=== PATIENT | male | born 1945 | race Caucasian/White ===

== ENCOUNTER 2021-10-08 07:14 | Outpatient (CLI) | payer OTHER | END 2021-10-08 07:15 | disposition home or self-care (01) | LOC: SONOGRAMA 07:14 | PROVIDERS: ATTEND Internal Medicine Hematology & Oncology | DX: E04.2 Nontoxic multinodular goiter (principal); D51.3 Other dietary vitamin B12 deficiency anemia; D50.8 Other iron deficiency anemias; R97.20 Elevated prostate specific antigen [PSA]; D53.0 Protein deficiency anemia; R97.0 Elevated carcinoembryonic antigen [CEA] ==